=== PATIENT | female | born 1960 | race Caucasian/White ===

== ENCOUNTER 2020-02-08 15:12 | Observation (INO) | payer OTHER ==
[~2020-02-08] VITALS: Ht 162.6 cm; Wt 68.5 kg
[2020-02-08 15:27] VITALS: BP 226/145
[2020-02-08 15:58] LABS: ABSOLUTE BASOPHILS 0.1 thou/uL (0.0-0.2); ABSOLUTE EOSINOPHILS 0.1 thou/uL (0.0-0.7); ABSOLUTE MONOCYTES 0.6 thou/uL (0.0-1.2); ABSOLUTE NEUTROPHILS 6.3 thou/uL (1.6-8.1); EOSINOPHILS 1.8 %; HEMATOCRIT 37.6 % (37.0-47.0); HEMOGLOBIN 13.5 gm/dL (12.0-15.0); LYMPHOCYTES 12.5 %; MCH 31.3 pg (26.0-34.0); MCHC 35.8 g/dL (28.0-37.0); MCV 87.5 fL (80.0-100.0); MONOCYTES 7.1 %; MPV 8.1 fl. (7.2-11.1); NUCLEATED RBCS 0 /100WBC; PLATELET COUNT* 223 thou/uL (150-400); POLYS 77.6 %; RBC 4.29 mil/uL (4.20-5.00); RDW-CV 13.7 % (10.5-14.5); WBC 8.2 thou/uL (4.0-11.0)
[2020-02-08 16:07] LABS: APTT 24.8 Seconds (25.0-31.3); PROTIME 10.2 Seconds (9.20-11.50)
[2020-02-08 16:09] LABS: CALCIUM 8.3 mg/dL (8.5-10.1); CREATININE 0.9 mg/dL (0.6-1.3); POTASSIUM 3.2 mmol/L (3.5-5.1)
[2020-02-08 16:14] LABS: ALBUMIN 3.6 g/dL (3.4-5.0); TOTAL BILIRUBIN 0.4 mg/dL (<0.1-1.0); TOTAL PROTEIN 6.8 g/dL (6.4-8.2)
[2020-02-08 18:23] LABS: CALCIUM 8.3 mg/dL (8.5-10.1); MAGNESIUM 1.7 mg/dL (1.8-2.4); PHOSPHORUS* 3.1 mg/dL (2.5-4.9)
[2020-02-08 18:48] LABS: URINE BILIRUBIN NEGATIVE (Negative); URINE BLOOD NEGATIVE (Negative); URINE CLARITY CLEAR; URINE COLOR YELLOW; URINE GLUCOSE-RANDOM NEGATIVE (Negative); URINE KETONES NEGATIVE (Negative); URINE LEUKOCYTES-REFLEX NEGATIVE (Negative); URINE NITRITE-REFLEX NEGATIVE (Negative); URINE PROTEIN NEGATIVE (Negative); URINE UROBILINOGEN 0.2 E.U./dl (0.2-1.0)
[2020-02-08 18:58] LABS: AMP/METHAMP POSITIVE (Negative); BARBITURATES Negative (Negative); BENZODIAZEPINES Negative (Negative); COCAINE Negative (Negative); METHADONE Negative (Negative); OPIATES POSITIVE (Negative); PCP Negative (Negative); THC POSITIVE (Negative)
[2020-02-08 20:27] VITALS: BP 171/97
[2020-02-08 20:30] VITALS: BP 166/104
[2020-02-09] VITALS: BP 154/85
[2020-02-09 04:00] VITALS: BP 135/72
[2020-02-09 08:33] VITALS: BP 143/99
[2020-02-09 09:48] VITALS: BP 143/99
--- NOTE | 2020-02-09 10:09 | EKG ---
[place] [address] ELECTROCARDIOGRAM REPORT Name: SELVIN CHILDERS Room: [address]#: [id number] Admission: 02/08/20 Attend Phys: Adalid Costello Discharge: Date of : 58 Date of Service: 02/08/20 1556 Report #: [id number] THIS REPORT FOR: //name// [facility] ED Test Date: 2020-02-08 Test Time: 15:56:36 Pat Name: SELVIN CHILDERS Department: Room: [facility] Gender: F Metaphysician: JULIO CÉSAR : 1960 Requested By: Nathanael Eller Order Number: [id number] MD: Duncan Coulter Measurements Intervals [place] Rate: 73 P: 7 NM: 123 QRS: 13 QRSD: 95 T: 67 QT: 419 QTc: 462 Interpretive Statements Sinus rhythm Anteroseptal infarct, old Baseline wander in lead(s) II,III,aVF No previous ECG available for comparison Electronically Signed On 02-09-2020 10:09:43 CDT by Duncan Coulter [email or web address] <ELECTRONICALLY SIGNED> By: Duncan Coulter MD, FAC 02/09/20 1009 1556 1556 Duncan Coulter MD, [facility] /EPI
[2020-02-09 11:11] LABS: CALCIUM 7.8 mg/dL (8.5-10.1); CREATININE 0.8 mg/dL (0.6-1.3); POTASSIUM 4.3 mmol/L (3.5-5.1)
[2020-02-09 12:00] VITALS: BP 132/76
[2020-02-09] MEDS ORDERED: PROZAC20 M1 PO (14:34)
[2020-02-09] MEDS ORDERED: BUSPIRONE HCL10 MG PO (14:34)
== END 2020-02-09 15:37 | disposition home or self-care (01) ==
LOC: M.ERS 15:12 → M.TBA-ER 16:37 → M.2W 21:06
PROVIDERS: Nurse Practitioner Psychiatric/Mental Health; ADMIT Internal Medicine; ATTEND Internal Medicine
DX: I82.401 Acute embolism and thrombosis of unspecified deep veins of right lower extremity (principal); F15.10 Other stimulant abuse, uncomplicated; F10.20 Alcohol dependence, uncomplicated; E87.6 Hypokalemia; E83.51 Hypocalcemia; I10 Essential (primary) hypertension; F17.200 Nicotine dependence, unspecified, uncomplicated; Z79.899 Other long term (current) drug therapy; Z79.01 Long term (current) use of anticoagulants; Z20.828 Contact with and (suspected) exposure to other viral communicable diseases